=== PATIENT | male | born 1970 | race Caucasian/White ===

== ENCOUNTER 2020-01-04 20:13 | Emergency (ER) | payer OTHER ==
[~2020-01-04] VITALS: Ht 180.3 cm; Wt 90.0 kg
--- NOTE | 2020-01-04 20:42 | NUR ---
C/O RASH ALL OVER BODY AND ITCHING SINCE LAST NIGHT, PT REPORTS HE WAS COVID+ 12/25/19.
[2020-01-04] MEDS ORDERED: FAMOTIDINE 20 MG TABLET ONE (20:49)
[2020-01-04] MEDS ORDERED: FAMOTIDINE 20 MG TABLET PO ONE (21:00)
[2020-01-04 21:41] VITALS: BP 106/71
== END 2020-01-04 22:31 | disposition home or self-care (01) ==
LOC: ED 21:18
DX: L50.0 Allergic urticaria (principal); R09.81 Nasal congestion; R21 Rash and other nonspecific skin eruption; F41.9 Anxiety disorder, unspecified
CPT/HCPCS: 99284; J7512; Q0177

== ENCOUNTER 2020-06-18 20:41 | Emergency (ER) | payer OTHER ==
[~2020-06-18] VITALS: Ht 180.3 cm; Wt 94.5 kg
--- NOTE | 2020-06-18 21:25 | NUR ---
PROVIDER AT BEDSIDE
[2020-06-18] MEDS ORDERED: FAMOTIDINE 20 MG TABLET ONE (21:28)
[2020-06-18] MEDS ORDERED: ALUMINUM/MAG/SIMETHICONE 30 ML UDC PO ONE (21:30)
[2020-06-18] MEDS ORDERED: FAMOTIDINE 20 MG TABLET PO ONE (21:30)
[2020-06-18] MEDS ORDERED: MAALOX/HYOSCYAMINE/LIDOCAINE 45 ML BTL ONE (21:32)
[2020-06-18] MEDS ORDERED: ALUMINUM/MAG/SIMETHICONE 30 ML UDC ONE (21:35)
--- NOTE | 2020-06-18 21:37 | NUR ---
PT COMES IN C/O CHEST PRESSURE 2/10 THAT RADIATES TO HIS BACK SINCE FRIDAY. STATES INTERMITTENT SOB, LIGHTHEADEDNESS. STATES NO N/V BUT THAT "MY STOMACH JUST DOESNT FEEL RIGHT". MONITORS CONNECTED. ORDERED MEDICATIONS ADMINISTERED.
--- NOTE | 2020-06-18 21:39 | NUR ---
PT AMBULATED TO BATHROOM WITH STEADY GAIT
[2020-06-18 22:43] LABS: ANION GAP 4 mmol/L (5-15); CHLORIDE 110 mmol/L (98-107)
[2020-06-18 22:44] LABS: BASOPHILS % (AUTO) 1 % (0-1); EOSINOPHILS % (AUTO) 3 % (1-7); LYMPHOCYTES % (AUTO) 32 % (22-44); MEAN CORPUSCULAR HEMOGLOBIN 30.3 pg (27.5-34.5); MEAN CORPUSCULAR HGB CONC 35.1 g/dL (33.2-36.2); MEAN PLATELET VOLUME 8.3 fL (7.4-10.4); MONOCYTES % (AUTO) 8 % (2-9); NEUTROPHILS % (AUTO) 57 % (42-75); PLATELET COUNT 240 x10^3/uL (130-400); RED CELL DISTRIBUTION WIDTH 13.3 % (9.4-14.8)
[2020-06-18 22:46] LABS: MD NO
[2020-06-18 22:49] LABS: ALANINE AMINOTRANSFERASE 31 U/L (12-78); ALKALINE PHOSPHATASE 57 U/L (45-117); BILIRUBIN,TOTAL 0.5 mg/dL (0.2-1.0); TOTAL PROTEIN 7.1 g/dL (6.4-8.2); TROPONIN I < 0.015 ng/mL (0.000-0.045)
[2020-06-18 23:13] VITALS: BP 115/81
== END 2020-06-19 00:07 | disposition home or self-care (01) ==
LOC: ED 23:58
DX: K29.00 Acute gastritis without bleeding (principal); R06.02 Shortness of breath; R94.31 Abnormal electrocardiogram [ECG] [EKG]
CPT/HCPCS: 36415; 71045; 80053; 83690; 84484; 85025; 93005; 99285